=== PATIENT | male | born 1980 | race Caucasian/White ===

== ENCOUNTER 2016-07-09 10:52 | Emergency (ER) | payer OTHER ==
[2016-07-09 11:08] VITALS: RESP 16
[2016-07-09] MEDS ORDERED: SODIUM CHLORIDE 0.9% 1,000 ML IV STA (11:29)
[2016-07-09] MEDS ORDERED: KETOROLAC 30 MG/ML 1 ML VIAL IVP STA (11:29)
--- NOTE | 2016-07-09 12:26 | CT ---
EXAMINATION TYPE: CT abdomen pelvis wo con DATE OF EXAM: 07/09/2016 12:16 PM COMPARISON: NONE HISTORY: Patient complains of left flank pain x4 days. CT DLP: 1054.8 mGycm Automated exposure control for dose reduction was used. FINDINGS: Visualized portions of the lungs are clear. There is no pleural or pericardial fluid. The h eart is not enlarged. Within the abdomen, the liver, spleen and gallbladder appear normal. Both adrenal glands appear normal. Limited views of the pancreas are normal. There is no evidence of nephrolithiasis or hydronephrosis. There is no significant retroperitoneal, iliac or inguinal adenopathy. There is minimal calcification in the prostate gland. The bladder is unremarkable. There is no significant diverticular change and there is no radiographic evidence of diverticulitis. The appendix is normal. There is mild wall thickening involving the descending and sigmoid colon. Small bowel loops are normal. No free fluid and no free air is seen. There is hypertrophic spondylosis in the lower dorsal spine. IMPRESSION: 1. NO EVIDENCE OF NEPHROLITHIASIS OR HYDRONEPHROSIS. 2. THICKENING OF THE BOWEL WALL INVOLVING THE DESCENDING AND SIGMOID COLON. PLEASE CORRELATE TO EXCLU DE COLITIS. 3. MILD DEGENERATIVE CHANGE WITHIN THE SPINE.
[2016-07-09 12:30] LABS: Basophils # (A) 0.1 k/uL (0-0.2); Basophils % (A) 1 %; CH 32.2; CHCM 35.2; Eosinophils # (A) 0.6 k/uL (0-0.7); Eosinophils % (A) 4 %; HCT 48.9 % (39.0-53.0); HGB 16.7 gm/dL (13.0-17.5); Luc # (Auto) 0.28; Luc % (Auto) 2; Lymphocytes # (A) 3.1 k/uL (1.0-4.8); Lymphocytes % (A) 22 %; MCH 31.3 pg (25.0-35.0); MCHC 34.1 g/dL (31.0-37.0); MCV 91.7 fL (80.0-100.0); Mean Platelet Volume 7.8; Monocytes # (A) 0.5 k/uL (0-1.0); Monocytes % (A) 4 %; Neutrophils # (A) 9.4 k/uL (1.3-7.7); Neutrophils % (A) 67 %; RBC 5.33 m/uL (4.30-5.90); RDW 12.9 % (11.5-15.5); WBC 14.1 k/uL (3.8-10.6); WBC (Perox) 14.11
[2016-07-09 12:38] LABS: Appearance,Urine Clear (Clear); Bilirubin,Urine Negative (Negative); Glucose,Urine (UA) Negative (Negative); Ketones,Urine Negative (Negative); Leukocyte Esterase,Urine Negative (Negative); Mucus,Urine Rare /hpf; Nitrite,Urine Negative (Negative); Particle Count 958; Protein,Urine Negative (Negative); RBC,Urine 1 /hpf (0-5); Specific Gravity,Urine 1.015 (1.001-1.035); UA Billing (MACRO vs. MICRO) MICRO; Urobilinogen,Urine <2.0 mg/dL (<2.0); WBC,Urine <1 /hpf (0-5)
[2016-07-09 12:42] LABS: ALT 70 U/L (21-72); AST 29 U/L (17-59); Alkaline Phosphatase 80 U/L (38-126); Amylase 40 U/L (30-110); Anion Gap 12 mmol/L; Blood Urea Nitrogen 13 mg/dL (9-20); Calcium 10.6 mg/dL (8.4-10.2); Carbon Dioxide 27 mmol/L (22-30); Chloride 103 mmol/L (98-107); Glucose 109 mg/dL (74-99); Non-African American GFR(MDRD) >60 (>60 ml/min/1.73 sqM); Potassium 4.8 mmol/L (3.5-5.1); Sodium 142 mmol/L (137-145); Total Bilirubin 0.5 mg/dL (0.2-1.3); Total Protein 7.9 g/dL (6.3-8.2)
--- NOTE | 2016-07-09 12:42 | XR ---
EXAMINATION TYPE: XR chest 2V DATE OF EXAM: 07/09/2016 12:34 PM COMPARISON: NONE INDICATION: Abdomen pain TECHNIQUE: Single frontal view of the chest is obtained. FINDINGS: The heart size is normal. The pulmonary vasculature is normal. The lungs are clear. No free air is under the diaphragm. IMPRESSION: 1. No acute pulmonary process.
[2016-07-09 13:25] VITALS: BP 148/84; PULSE 78; TEMP 97.9
--- NOTE | 2016-07-09 13:42 | ED ---
Abdominal Pain HPI - General Chief Complaint: Abdominal Pain Stated Complaint: side pain Time Seen by Provider: 07/09/16 11:18 Source: patient Mode of arrival: ambulatory Limitations: no limitations - History of Present Illness Initial Comments: Patient complains of abdominal pain. The pain is in the left side. The pain does not radiate anywhere. Patient has no fever, chills, chest pain or shortness of breath. He's had some nausea and diarrhea. There is no blood in the stool. He has no black or tarry stool. Patient has no lightheadedness or dizziness. He has no neck pain or stiffness. He has no change in vision or hearing. - Related Data Home Medications Medication Instructions Recorded Confirmed Ascorbic Acid [Vitamin C] 2,000 mg PO DAILY 07/09/16 07/09/16 Allergies Allergy/AdvReac Type Severity Reaction Status Date / Time No Known Allergies Allergy Unverified 07/09/16 11:18 Review of Systems ROS Statement: Those systems with pertinent positive or pertinent negative responses have been documented in the HPI. ROS Other: All systems not noted in ROS Statement are negative. Past Medical History Past Medical History: No Reported History Additional Past Medical History / Comment(s): "fatty liver" History of Any Multi-Drug Resistant Organisms: None Reported Past Surgical History: No Surgical Hx Reported Past Psychological History: No Psychological Hx Reported Smoking Status: Current every day smoker Past Alcohol Use History: None Reported Past Drug Use History: Marijuana General Exam Limitations: no limitations General appearance: alert, in no apparent distress Head exam: Present: atraumatic, normocephalic, normal inspection Eye exam: Present: normal appearance, PERRL, EOMI. Absent: scleral icterus, conjunctival injection, periorbital swelling ENT exam: Present: normal exam, mucous membranes moist Neck exam: Present: normal inspection. Absent: tenderness, meningismus, lymphadenopathy Respiratory exam: Present: normal lung sounds bilaterally. Absent: respiratory distress, wheezes, rales, rhonchi, stridor Cardiovascular Exam: Present: regular rate, normal rhythm, normal heart sounds. Absent: systolic murmur, diastolic murmur, rubs, gallop, clicks GI/Abdominal exam: Present: soft, normal bowel sounds. Absent: distended, tenderness, guarding, rebound, rigid Extremities exam: Present: normal inspection, full ROM, normal capillary refill. Absent: tenderness, pedal edema, joint swelling, calf tenderness Back exam: Present: normal inspection Neurological exam: Present: alert, oriented X3, CN II-XII intact Psychiatric exam: Present: normal affect, normal mood Skin exam: Present: warm, dry, intact, normal color. Absent: rash Course Vital Signs 07/09/16 07/09/16 11:05 13:22 Temperature 97.1 F L 97.9 F Pulse Rate 89 78 Respiratory 16 16 Rate Blood Pressure 135/91 148/84 O2 Sat by Pulse 98 99 Oximetry Medical Decision Making - Medical Decision Making Patient complains of left-sided abdominal pain. He doesn't have any real tenderness, but I am concerned for a kidney stone. I obtained laboratory studies which show a slightly elevated white count. Patient is given Toradol and he has gotten relief with this. CAT scan reveals no kidney stones but does confirm gastroenteritis. Patient is tolerating oral intake on evaluation. He is feeling better and I feel he is stable for discharge. - Lab Data Result diagrams: 07/09/16 12:10 07/09/16 12:10 Lab Results 07/09/16 07/09/16 07/09/16 Range/Units 12:10 12:10 12:10 WBC 14.1 H (3.8-10.6) k/uL RBC 5.33 (4.30-5.90) m/uL Hgb 16.7 (13.0-17.5) gm/dL Hct 48.9 (39.0-53.0) % MCV 91.7 (80.0-100.0) fL MCH 31.3 (25.0-35.0) pg MCHC 34.1 (31.0-37.0) g/dL RDW 12.9 (11.5-15.5) % Plt Count 338 (150-450) k/uL Neutrophils % 67 % Lymphocytes % 22 % Monocytes % 4 % Eosinophils % 4 % Basophils % 1 % Neutrophils # 9.4 H (1.3-7.7) k/uL Lymphocytes # 3.1 (1.0-4.8) k/uL Monocytes # 0.5 (0-1.0) k/uL Eosinophils # 0.6 (0-0.7) k/uL Basophils # 0.1 (0-0.2) k/uL Sodium 142 (137-145) mmol/L Potassium 4.8 (3.5-5.1) mmol/L Chloride 103 (98-107) mmol/L Carbon Dioxide 27 (22-30) mmol/L Anion Gap 12 mmol/L BUN 13 (9-20) mg/dL Creatinine 1.06 (0.66-1.25) mg/dL Est GFR (MDRD) Af Amer >60 (>60 ml/min/1.73 sqM) Est GFR (MDRD) Non-Af >60 (>60 ml/min/1.73 sqM) Glucose 109 H (74-99) mg/dL Calcium 10.6 H (8.4-10.2) mg/dL Total Bilirubin 0.5 (0.2-1.3) mg/dL AST 29 (17-59) U/L ALT 70 (21-72) U/L Alkaline Phosphatase 80 (38-126) U/L Total Protein 7.9 (6.3-8.2) g/dL Albumin 4.7 (3.5-5.0) g/dL Amylase 40 (30-110) U/L Lipase 33 (23-300) U/L Urine Color Yellow Urine Appearance Clear (Clear) Urine pH 6.0 (5.0-8.0) Ur Specific [place] 1.015 (1.001-1.035) Urine Protein Negative (Negative) Urine Glucose (UA) Negative (Negative) Urine Ketones Negative (Negative) Urine Blood Trace H (Negative) Urine Nitrate Negative (Negative) Urine Bilirubin Negative (Negative) Urine Urobilinogen <2.0 (<2.0) mg/dL Ur Leukocyte Esterase Negative (Negative) Urine RBC 1 (0-5) /hpf Urine WBC <1 (0-5) /hpf Urine Mucus Rare H (None) /hpf Disposition Clinical Impression: Gastroenteritis Disposition: HOME SELF-CARE Condition: Good Instructions: Colitis (ED) Time of Disposition: 13:42
== END 2016-07-09 14:13 | disposition home or self-care (01) ==
LOC: EC 10:52
DX: K52.9 Noninfective gastroenteritis and colitis, unspecified (principal); F17.200 Nicotine dependence, unspecified, uncomplicated
CPT/HCPCS: 99284; 96374; 36415; 80053; 82150; 83690; 85025; 71020; 81001; 74176; J1885

== ENCOUNTER 2018-02-16 16:23 | Emergency (ER) | payer OTHER ==
[2018-02-16 16:32] VITALS: PULSE 95; RESP 18; TEMP 97.9
--- NOTE | 2018-02-16 16:56 | ED ---
Skin/Abscess/FB HPI - General Chief complaint: Skin/Abscess/Foreign Body Stated complaint: ingrown hair on head Time Seen by Provider: 02/16/18 16:41 Source: patient Mode of arrival: ambulatory Limitations: no limitations - History of Present Illness Initial comments: 37-year-old male past medical history of diabetes insulin-dependent presented today for chief complaint of pimples on her scalp. Patient states that last week he shaved his head, he denied knicking himself with the razor. His noticed last night a few bumps on his head that looked like pimples with some surrounding redness and pus in the center. Pt was concerned for infection so he presented to the emergency department for evaluation. pt denies any fever , chills, nightsweats, headache, lesions in other areas of the body. Pt denies experiencing this before, he states he feels fine but his scared him. Pt stated he felt as though he had ingrown hairs on his scalp. Remainder of ROS (- ) - Related Data Home Medications Medication Instructions Recorded Confirmed Ascorbic Acid [Vitamin C] 2,000 mg PO DAILY 07/09/16 07/09/16 Previous Rx's Medication Instructions Recorded Cephalexin [Keflex] 500 mg PO Q12HR 5 Days #10 cap 02/16/18 Allergies Allergy/AdvReac Type Severity Reaction Status Date / Time No Known Allergies Allergy Verified 02/16/18 16:32 Review of Systems ROS Statement: Those systems with pertinent positive or pertinent negative responses have been documented in the HPI. ROS Other: All systems not noted in ROS Statement are negative. Constitutional: Denies: fever, chills, night sweats ENT: Denies: ear pain, throat pain, dental pain Respiratory: Denies: cough Cardiovascular: Denies: chest pain, palpitations Endocrine: Denies: fatigue Gastrointestinal: Denies: abdominal pain, nausea, vomiting, diarrhea, constipation Genitourinary: Denies: urgency, dysuria Musculoskeletal: Denies: back pain Skin: Reports: as per HPI (3 "ingrown hairs/pimples on scalp"). Denies: rash, lesions Neurological: Denies: headache, weakness, numbness, paresthesias, confusion Past Medical History Past Medical History: Diabetes Mellitus Additional Past Medical History / Comment(s): "fatty liver" History of Any Multi-Drug Resistant Organisms: None Reported Past Surgical History: No Surgical Hx Reported Past Psychological History: No Psychological Hx Reported Smoking Status: Current every day smoker Past Alcohol Use History: None Reported Past Drug Use History: Marijuana General Exam - General Exam Comments Initial Comments: General: The patient is awake and alert, in no distress, and does not appear acutely ill. Eye: Pupils are equal, round and reactive to light, extra-ocular movements are intact. No nystagmus. There is normal conjunctiva bilaterally. No signs of icterus. Ears, nose, mouth and throat: There are moist mucous membranes and no oral lesions. Neck: The neck is supple, there is no tenderness or JVD. No anterior or posterior cervical lymphadenopathy. Cardiovascular: There is a regular rate and rhythm. No murmur, rub or gallop is appreciated. Respiratory: Lungs are clear to auscultation, respirations are non-labored, breath sounds are equal. No wheezes, stridor, rales, or rhonchi. Musculoskeletal: Normal ROM, no tenderness. Strength 5/5. Sensation intact. Pulses equal bilaterally 2+. Neurological: A&O x 3. CN II-XII intact, There are no obvious motor or sensory deficits. Coordination appears grossly intact. Speech is normal. Skin: Skin is warm and dry and no rashes or lesions are noted. 3 small <1cm pustules on indurated base at hair follicle, with mild surrounding erythema on the parietal and occipital region of scalp. Psychiatric: Cooperative, appropriate mood & affect, normal judgment. Limitations: no limitations Course Vital Signs 02/16/18 02/16/18 16:30 17:07 Temperature 97.9 F Pulse Rate 95 Respiratory 18 Rate Blood Pressure 150/100 158/90 O2 Sat by Pulse 98 Oximetry Medical Decision Making - Medical Decision Making PE revealed 3 carbuncles of the scalp, there. Needle expression of contents was attempted on largest however there was no pus expressed. bacitracin applied to all carbuncles. Due to pt history of DM and mild surrounding erythema pt was started on keflex 500 x 5 days as well as instruction to apply warm compress, and bacitracin to areas daily. Case discussed with Dr. Gomes at this time we feel pt is stable for d/c with PCP f/u. Pt was instructed to return for any rapidly increasing redness, fever, chills or nightsweats. Pt d/c in stable condition. Disposition Clinical Impression: Folliculitis, Carbuncle of head except face Disposition: HOME SELF-CARE Condition: Good Instructions: Furunculosis and Carbunculosis (ED), Folliculitis (ED) Additional Instructions: Please use medication as discussed. Please follow-up with family doctor in the next 2 days of symptoms have not improved. Please return to emergency room if the symptoms increase or worsen or for any other concerns. Prescriptions: Cephalexin [Keflex] 500 mg PO Q12HR 5 Days #10 cap Is patient prescribed a controlled substance at d/c from ED?: No Referrals: None,Stated [Primary Care Provider] - 1-2 days Time of Disposition: 16:54
[2018-02-16 17:08] VITALS: BP 158/90
== END 2018-02-16 17:08 | disposition home or self-care (01) ==
LOC: EC 16:23
DX: L02.831 Carbuncle of head [any part, except face] (principal); L73.9 Follicular disorder, unspecified; E11.9 Type 2 diabetes mellitus without complications; F17.200 Nicotine dependence, unspecified, uncomplicated
CPT/HCPCS: 99282

== ENCOUNTER 2022-06-04 12:25 | Day surgery (SDC) | payer OTHER ==
[~2022-06-04 12:25] MED LIST: SODIUM CHLORIDE 0.9% 1,000 ML IV SCH
[2022-06-04 12:47] VITALS: RESP 16; TEMP 98.2
[2022-06-04 12:50] LABS: Glucose,Whole Blood 391 mg/dL (70-110)
[2022-06-04] MEDS ORDERED: SODIUM CHLORIDE 0.9% 500 ML 500 ML IV ONE (12:52)
[2022-06-04] MEDS ORDERED: INSULIN ASPART (NovoLOG) 100 UNIT/ML VIAL SQ ONE (12:58)
--- NOTE | 2022-06-04 15:20 | P.EPPROC ---
- EP Procedure Note Electrophysiology Procedure Note: Diagnosis Recurrent syncope Twelve-lead EKG shows sinus tachycardia at rest 125 beats a minute normal [place] narrow QRS normal ST segments Tilt table test for protocol Baseline heart rate 112 beats a minute, Baseline blood pressure 129/86. His mercury Patient was tilted upright at an angle of 70 per protocol there was an increase in the heart rate in the 130s Heart rate remained in the 130s, sinus tachycardia No change in blood pressure When he is laid supine heart rate went down to 127 beats a minute Impression Sinus tachycardia at rest in supine position No evidence for neurocardiogenic syncope Plan Recheck TSH, free T4, free T3 Follow-up with Dr. Melton
[2022-06-04 18:55] VITALS: BP 135/90; PULSE 124
== END 2022-06-04 15:28 | disposition home or self-care (01) ==
LOC: CATHEP 12:25
PROVIDERS: ATTEND Internal Medicine Clinical Cardiac Electrophysiology
DX: R55 Syncope and collapse (principal); R00.0 Tachycardia, unspecified; I10 Essential (primary) hypertension; E10.9 Type 1 diabetes mellitus without complications; Z82.49 Family history of ischemic heart disease and other diseases of the circulatory system; F17.210 Nicotine dependence, cigarettes, uncomplicated; Z79.02 Long term (current) use of antithrombotics/antiplatelets; Z79.891 Long term (current) use of opiate analgesic; Z79.899 Other long term (current) drug therapy
CPT/HCPCS: 84443; 84481; 93660

== ENCOUNTER 2023-08-26 09:55 | Emergency (ER) | payer OTHER ==
--- NOTE | 2023-08-26 10:13 | ED ---
ENT HPI - General Chief complaint: Dental/Oral Stated complaint: Oral Pain Time Seen by Provider: 08/26/23 10:04 Source: patient, RN notes reviewed Mode of arrival: ambulatory Limitations: no limitations - History of Present Illness Initial comments: This is a 43-year-old male who presents to the emergency department for a dental infection. States that he developed pain to the teeth in the left upper jaw 1 to 2 days ago. He started using Anbesol, which he felt was helpful for his pain. When he woke up this morning, he noticed swelling along the left upper jaw and believes that he developed a dental abscess. Pain however has improved substantially. Denies any drainage. He has a dentist, but wants to wait to see his dentist until after he gets his infection under control, and states that he will likely need his teeth pulled. MD complaint: tooth pain - Related Data Home Medications Medication Instructions Recorded Confirmed Atorvastatin [Lipitor] 10 mg PO HS 12/11/21 06/04/22 Gabapentin [Neurontin] 150 mg PO BID 12/11/21 06/04/22 Insulin Detemir [Levemir Flextouch 40 units INJ HS 12/11/21 06/04/22 Pen] Insulin Glulisine [Apidra Solostar 0 units INJ TID-W/MEALS PRN 12/11/21 06/04/22 Pen] Losartan [Cozaar] 25 mg PO HS 12/11/21 06/04/22 metFORMIN HCL 1,000 mg PO BID 12/11/21 06/04/22 Previous Rx's Medication Instructions Recorded Amoxic-Pot Clav 875-125Mg 1 tab PO Q12HR 10 Days #20 tab 08/26/23 [Augmentin 875-125] Ibuprofen [Motrin] 800 mg PO Q8H PRN #30 tab 08/26/23 Allergies Allergy/AdvReac Type Severity Reaction Status Date / Time No Known Allergies Allergy Verified 08/26/23 10:03 Review of Systems ROS Statement: Those systems with pertinent positive or pertinent negative responses have been documented in the HPI. ROS Other: All systems not noted in ROS Statement are negative. Past Medical History Past Medical History: Diabetes Mellitus Additional Past Medical History / Comment(s): EPISODES OF VERTIGO. 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14 History of Any Multi-Drug Resistant Organisms: None Reported Past Surgical History: No Surgical Hx Reported Past Anesthesia/Blood Transfusion Reactions: No Reported Reaction Past Psychological History: No Psychological Hx Reported Smoking Status: Current every day smoker Past Alcohol Use History: None Reported Past Drug Use History: Marijuana - Past Family History Mother Family Medical History: No Reported History General Exam Limitations: no limitations General appearance: alert, in no apparent distress Head exam: Present: atraumatic, normocephalic, normal inspection ENT exam: Present: other (Multiple dental caries and chipped teeth. Pain and swelling along the left upper jawline consistent with a dental abscess. There is no elevation of the tongue or swelling to the floor of the mouth.) Respiratory exam: Present: normal lung sounds bilaterally. Absent: respiratory distress, wheezes, rales, rhonchi, stridor Cardiovascular Exam: Present: regular rate, normal rhythm, normal heart sounds. Absent: systolic murmur, diastolic murmur, rubs, gallop, clicks Neurological exam: Present: alert, oriented X3, CN II-XII intact Psychiatric exam: Present: normal affect, normal mood Skin exam: Present: warm, dry, intact, normal color. Absent: rash Course Vital Signs 08/26/23 08/26/23 10:01 10:31 Temperature 98 F 98.4 F Pulse Rate 116 H 104 H Respiratory 18 Rate Blood Pressure 136/78 O2 Sat by Pulse 98 Oximetry Medical Decision Making - Medical Decision Making This is a 43 year old male who presents to the emergency department for dental pain. Was pt. sent in by a medical professional or institution? @ -No Did you speak to anyone other than the patient for history? @ -No Did you review nursing and triage notes? @ -Yes, and I agree, it is accurate with regards to the patient's symptoms. Were old charts reviewed? @ -No Differential Diagnosis? @ -Differential Dental Pain: Dental abscess, chipped tooth, dental carries, nithin's angina, trigeminal neuralgia, this is not meant to be an all-inclusive list. EKG interpreted by me (3pts min.)? @ -Not obtained X-rays interpreted by me (1pt min.)? @ -Not obtained CT interpreted by me (1pt min.)? @ -Not obtained U/S interpreted by me (1pt. min.)? @ -Not obtained What testing was considered but not performed? (CT, X-rays, U/S, labs)? Why? @ -None What meds were considered but not given? Why? @ -None Did you discuss the management of the patient with other professionals? @ -No Did you reconcile home meds? @ -No Was smoking cessation discussed for >3mins.? @ -I discussed smoking cessation for greater than 3 minutes. The risk of smoking were discussed with the patient including but not limited to risks of cancer, stroke, coronary artery disease and COPD. Also discussed with patient were multiple methods of quitting smoking. Lastly we discussed the financial cost of smoking. Was critical care preformed (if so, how long)? @ -No Were there social determinants of health that impacted care today? How? (Homelessness, low income, unemployed, alcoholism, drug addiction, transportation, low edu. Level, literacy, decrease access to med. care, long term, rehab)? @ -No Was there de-escalation of care discussed even if they declined? (Discuss DNR or withdrawal of care, Hospice)? @ -No What co-morbidities impacted this encounter? (DM, HTN, Smoking, COPD, CAD, Cancer, CVA, Hep., AIDS, mental health diagnosis, sleep apnea, morbid obesity)? @ -Smoking, DM Was patient admitted / discharged? @ -Discharged. Physical examination consistent with a dental abscess along one of the teeth in the left upper jaw. He has no elevation of the tongue or swelling to the floor of the mouth to suggest a Nithin's angina. Prescription for Augmentin and ibuprofen provided with dosing instructions reviewed. He is otherwise advised follow-up with his dentist. Undiagnosed new problem with uncertain prognosis? @ -None Drug Therapy requiring intensive monitoring for toxicity (Heparin, Nitro, Insulin, Cardizem)? @ -None Were any procedures done? @ -None Diagnosis/symptom? @ -Dental abscess Acute, or Chronic, or Acute on Chronic? @ -Acute Uncomplicated (without systemic symptoms) or Complicated (systemic symptoms)? @ -Uncomplicated Side effects of treatment? @ -None Exacerbation, Progression, or Severe Exacerbation] @ -Not applicable Poses a threat to life or bodily function? @ -No Return precautions reviewed in depth, the patient is instructed to return to the emergency department with any new, worsening, or concerning symptoms. Patient verbalized understanding. This case was discussed in detail with the attending ED physician, Dr. Naranjo. Presentation, findings, and treatment plan discussed in detail as well. Disposition Clinical Impression: Dental abscess, Nicotine dependence Disposition: HOME SELF-CARE Instructions (If sedation given, give patient instructions): Dental Abscess (ED) Additional Instructions: Return to the emergency department with any new, worsening, or concerning symptoms. Take the antibiotic as prescribed for 10 days. Alternate with ibupro fen and Tylenol as needed for pain relief. Follow-up with your dentist. Prescriptions: Amoxic-Pot Clav 875-125Mg [Augmentin 875-125] 1 tab PO Q12HR 10 Days #20 tab Ibuprofen [Motrin] 800 mg PO Q8H PRN #30 tab PRN Reason: Pain Is patient prescribed a controlled substance at d/c from ED?: No Referrals: None,Stated [Primary Care Provider] - 1-2 days Time of Disposition: 10:13
[2023-08-26 10:20] VITALS: BP 136/78; RESP 18
[2023-08-26 10:59] VITALS: PULSE 104; TEMP 98.4
== END 2023-08-26 10:35 | disposition home or self-care (01) ==
LOC: EC 09:55
DX: K04.7 Periapical abscess without sinus (principal); F17.200 Nicotine dependence, unspecified, uncomplicated; F12.90 Cannabis use, unspecified, uncomplicated
CPT/HCPCS: 99282; 99406

== ENCOUNTER 2024-08-23 02:43 | Emergency (ER) | payer OTHER ==
[2024-08-23 02:47] VITALS: BP 121/87; PULSE 114; RESP 18; TEMP 97.4
--- NOTE | 2024-08-23 03:10 | ED ---
ENT HPI - General Chief complaint: Dental/Oral Stated complaint: Tooth infection Time Seen by Provider: 08/23/24 02:56 Source: patient Mode of arrival: ambulatory Limitations: no limitations - History of Present Illness Initial comments: 44-year-old male presents emergency room for complaint of dental pain. Patient states that he is eating pizza few days ago when he believes that he may have caused a abrasion to his gum. Yesterday he began to experience swelling of the upper lip and earlier today there was purulent drainage from the upper part of h is gums. Patient denies pain, fevers, chills, difficulty breathing or swallowing. Denies current antibiotic use. - Related Data Home Medications Medication Instructions Recorded Confirmed Atorvastatin [Lipitor] 10 mg PO HS 12/11/21 06/04/22 Gabapentin [Neurontin] 150 mg PO BID 12/11/21 06/04/22 Insulin Detemir [Levemir Flextouch 40 units INJ HS 12/11/21 06/04/22 Pen] Insulin Glulisine [Apidra Solostar 0 units INJ TID-W/MEALS PRN 12/11/21 06/04/22 Pen] Losartan [Cozaar] 25 mg PO HS 12/11/21 06/04/22 metFORMIN HCL 1,000 mg PO BID 12/11/21 06/04/22 Previous Rx's Medication Instructions Recorded Amoxic-Pot Clav 875-125Mg 1 tab PO Q12HR 10 Days #20 tab 08/26/23 [Augmentin 875-125] Ibuprofen [Motrin] 800 mg PO Q8H PRN #30 tab 08/26/23 Amoxic-Pot Clav 875-125Mg 1 tab PO Q12HR #20 tab 08/23/24 [Augmentin 875-125] Allergies Allergy/AdvReac Type Severity Reaction Status Date / Time No Known Allergies Allergy Verified 08/23/24 02:47 Review of Systems ROS Statement: Those systems with pertinent positive or pertinent negative responses have been documented in the HPI. ROS Other: All systems not noted in ROS Statement are negative. Past Medical History Past Medical History: Diabetes Mellitus Additional Past Medical History / Comment(s): EPISODES OF VERTIGO. 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14 History of Any Multi-Drug Resistant Organisms: None Reported Past Surgical History: No Surgical Hx Reported Past Anesthesia/Blood Transfusion Reactions: No Reported Reaction Past Psychological History: No Psychological Hx Reported Smoking Status: Current every day smoker Past Alcohol Use History: None Reported Past Drug Use History: Marijuana - Past Family History Mother Family Medical History: No Reported History General Exam Limitations: no limitations General appearance: alert, in no apparent distress Expanded Teeth exam: Present: dental caries, fractured tooth # Respiratory exam: Present: normal lung sounds bilaterally. Absent: respiratory distress, wheezes, rales, rhonchi, stridor Cardiovascular Exam: Present: regular rate, normal rhythm, normal heart sounds. Absent: systolic murmur, diastolic murmur, rubs, gallop, clicks GI/Abdominal exam: Present: soft, normal bowel sounds. Absent: distended, tenderness, guarding, rebound, rigid Extremities exam: Present: normal inspection, full ROM, normal capillary refill. Absent: tenderness, pedal edema, joint swelling, calf tenderness Back exam: Present: normal inspection Course Vital Signs 08/23/24 02:44 Temperature 97.4 F L Pulse Rate 114 H Respiratory 18 Rate Blood Pressure 121/87 O2 Sat by Pulse 100 Oximetry Medical Decision Making - Medical Decision Making Was pt. sent in by a medical professional or institution (, PA, INSTRUMENT MAKER AND REPAIRER, urgent care, hospital, or fci...) When possible be specific @ -No Did you speak to anyone other than the patient for history (EMS, parent, family, police, friend...)? What history was obtained from this source @ -No Did you review nursing and triage notes (agree or disagree)? Why? @ -I reviewed and agree with nursing and triage notes Were old charts reviewed (outside hosp., previous admission, EMS record, old EKG, old radiological studies, urgent care reports/EKG's, fci records)? Report findings @ -No old charts were reviewed Differential Diagnosis (chest pain, altered mental status, abdominal pain women, abdominal pain men, vaginal bleeding, weakness, fever, dyspnea, syncope, headache, dizziness, GI bleed, back pain, seizure, CVA, palpatations, mental health, musculoskeletal)? @ -Fractured tooth, dental abscess, pulpitis, gingivitis, this list is not all inclusive EKG interpreted by me (3pts min.). @ -None X-rays interpreted by me (1pt min.). @ -None done CT interpreted by me (1pt min.). @ -None done U/S interpreted by me (1pt. min.). @ -None done What testing was considered but not performed or refused? (CT, X-rays, U/S, labs)? Why? @ -None What meds were considered but not given or refused? Why? @ -None Did you discuss the management of the patient with other professionals (professionals i.e. DrSimón, PA, INSTRUMENT MAKER AND REPAIRER, lab, RT, psych nurse, forensic social worker, lifter, teacher, air intelligence officer, rn case manager)? Give summary @ -No Was smoking cessation discussed for >3mins.? @ -No Was critical care preformed (if so, how long)? @ -No Were there social determinants of health that impacted care today? How? (Homelessness, low income, unemployed, alcoholism, drug addiction, transportation, low edu. Level, literacy, decrease access to med. care, detention, rehab)? @ -No Was there de-escalation of care discussed even if they declined (Discuss DNR or withdrawal of care, Hospice)? DNR status @ -No What co-morbidities impacted this encounter? (DM, HTN, Smoking, COPD, CAD, Cancer, CVA, ARF, Chemo, Hep., AIDS, mental health diagnosis, sleep apnea, morbid obesity)? @ -None Was patient admitted / discharged? Hospital course, mention meds given and route, prescriptions, significant lab abnormalities, going to OR and other pertinent info. @ -Discharge. 44-year-old male presenting with dental pain. On examination there is noted facial edema of the upper lip. Oral examination reveals extremely poor dentition with multiple missing teeth and fractured teeth. There is noted draining dental abscess. Vitals are stable. Patient provided with Augmentin instructed to follow-up with dentist. Return parameters discussed. Case discussed with Dr. Francis Undiagnosed new problem with uncertain prognosis? @ -No Drug Therapy requiring intensive monitoring for toxicity (Heparin, Nitro, Insulin, Cardizem)? @ -No Were any procedures done? @ -No Diagnosis/symptom? @ -dental abscess Acute, or Chronic, or Acute on Chronic? @ -acute Uncomplicated (without systemic symptoms) or Complicated (systemic symptoms)? @ -uncomplicated Side effects of treatment? @ -No Exacerbation, Progression, or Severe Exacerbation? @ -No Poses a threat to life or bodily function? How? (Chest pain, [place], [place], pneumonia, PE, COPD, DKA, ARF, appy, cholecystitis, CVA, Diverticulitis, Homicidal, Suicidal, threat to staff... and all critical care pts) @ -No Disposition Clinical Impression: Dental abscess Disposition: HOME SELF-CARE Condition: Good Instructions (If sedation given, give patient instructions): Dental Abscess (ED) Additional Instructions: Please return to the Emergency Department if symptoms worsen or any other concerns. Prescriptions: Amoxic-Pot Clav 875-125Mg [Augmentin 875-125] 1 tab PO Q12HR #20 tab Is patient prescribed a controlled substance at d/c from ED?: No Referrals: Claudia Martines NPC [Primary Care Provider] - 1-2 days Time of Disposition: 03:10
[2024-08-23] MEDS: AMOXIC-POT CLAV 875-125MG 1 EACH TAB PO STA (03:19)
== END 2024-08-23 03:14 | disposition home or self-care (01) ==
LOC: EC 02:43
DX: K04.7 Periapical abscess without sinus (principal); F17.200 Nicotine dependence, unspecified, uncomplicated
CPT/HCPCS: 99282